=== PATIENT | male | born 1945 | race Caucasian/White ===

== ENCOUNTER 2021-06-19 12:50 | Inpatient (IN) ==
[2021-06-19] MEDS ORDERED: 0.9 % Sodium Chloride 1,000 ML IVC ONE ×2 (14:47→17:48)
[2021-06-19] MEDS ORDERED: Ketorolac 30 MG/ML VIAL IVP ONE (14:48)
[2021-06-19 15:07] LABS: Bacteria,Urine Few per hpf (None-Few); Bilirubin,Urine Small (Negative); Blood,Urine Small (Negative); Clarity,Urine Turbid (Clear); Color,Urine Yellow (Yellow); Glucose,Urine (UA) Normal (Normal); Ketones,Urine Negative (Negative); Leukocyte Esterase,Urine Small (Negative); Mucus,Urine Few per lpf (None-Few); Nitrite,Urine Negative (Negative); Protein,Urine 100 mg/dL (Neg-Trace); RBC,Urine 0-3 per hpf (0-3); Specific Gravity,Urine 1.026 (1.010-1.025); Squamous Epithelial Cell,Urine Few per hpf (None-Few); Urobilinogen,Urine >=8.0 mg/dL (Normal); WBC,Urine 15-30 per hpf (0-3)
[2021-06-19 15:30] LABS: Basophils # 0.1 K/mcL (0.0-0.2); Basophils % 0.3 %; Eosinophils # 0.3 K/mcL (0.0-0.6); Eosinophils % 1.3 %; Hematocrit 44.4 % (37.5-50.1); Hemoglobin 15.2 g/dL (12.9-16.9); Immature Granulocytes % 1.1 % (0-4); Lymphocytes # 0.7 K/mcL (0.6-4.6); Lymphocytes % 3.3 %; Mean Corpuscular HGB Conc 34.2 g/dL (31.6-35.5); Mean Corpuscular Hemoglobin 30.6 pg (28.0-33.3); Mean Corpuscular Volume 89.3 fL (83.0-100.0); Mean Platelet Volume 10.8 fL (9.4-12.4); Monocytes # 1.2 K/mcL (0.0-1.3); Monocytes % 5.9 %; Neutrophils # 17.5 K/mcL (1.6-8.9); Platelet Count 109 K/mcL (140-400); Red Blood Count 4.97 M/mcL (4.19-5.50); Red Cell Distribution Width 13.2 % (11.5-14.5); Segmented Neutrophils % 88.1 %; White Blood Count 19.8 K/mcL (4.3-11.1)
[2021-06-19 15:37] LABS: INR 1.1; Prothrombin Time 12.8 Seconds (9.4-12.1)
[2021-06-19] MEDS ORDERED: levoFLOXacin 750 MG/150 ML 750 MG/150 ML BAG IVPB ONE (16:04)
[2021-06-19 17:03] LABS: Adenovirus Not Detected (Not Detect); Bordetella Pertussis Not Detected (Not Detect); Chlamydophila pneumoniae Not Detected (Not Detect); Coronavirus 229E Not Detected (Not Detect); Coronavirus HKU1 Not Detected (Not Detect); Coronavirus NL63 Not Detected (Not Detect); Coronavirus OC43 Not Detected (Not Detect); Human Metapneumovirus Not Detected (Not Detect); Human Rhinovirus/Enterovirus Not Detected (Not Detect); Influenza A Subtype 2009 H1 Not Detected (Not Detect); Influenza B Not Detected (Not Detect); Mycoplasma pneumoniae Not Detected (Not Detect); Parainfluenza Virus 1 Not Detected (Not Detect); Parainfluenza Virus 2 Not Detected (Not Detect); Parainfluenza Virus 3 Not Detected (Not Detect); Parainfluenza Virus 4 Not Detected (Not Detect); Respiratory Syncytial Virus Not Detected (Not Detect); SARS-CoV-2 Not Detected (Not Detect)
[2021-06-19] MEDS ORDERED: Acetaminophen 325 MG TABLET PO PRN (17:37)
[2021-06-19] MEDS ORDERED: Ondansetron 4 MG/2 ML VIAL IVP PRN (17:37)
[2021-06-19] MEDS ORDERED: Naloxone 0.4 MG/ML INJ IVP PRN (17:37)
[2021-06-19 17:47] LABS: Alanine Aminotransferase 30 Units/L (7-52); Albumin 3.2 g/dL (3.5-5.7); Albumin/Globulin Ratio 1.1 (1.1-2.2); Alkaline Phosphatase 92 Units/L (34-104); Aspartate Amino Transferase 27 Units/L (13-39); Bilirubin,Direct 0.3 mg/dL (0.0-0.2); Bilirubin,Indirect 0.7 mg/dL (0.0-1.0); Blood Urea Nitrogen 34 mg/dL (8-23); Calcium 9.8 mg/dL (8.6-10.3); Carbon Dioxide 24 mEq/L (23-29); Chloride 95 mEq/L (98-107); Globulin 2.9 g/dL (2.4-3.5); Glucose 142 mg/dL (70-105); Osmolality,Calculated 270 (280-300); Potassium 4.8 mEq/L (3.5-5.1); Sodium 125 mEq/L (136-145); Total Protein 6.1 g/dL (6.4-8.9)
[2021-06-19] MEDS ORDERED: traZODone 50 MG TABLET PO PRN (17:53)
[2021-06-19 18:20] LABS: BUN/Creatinine Ratio 18 (6-26); C-Reactive Protein 166 mg/L (Less than 10); eGFR For African Americans 43 (> 60); eGFR For Non-African Americans 36 (> 60)
[2021-06-19 18:46] LABS: Troponin I < 0.03 ng/mL (< 0.04)
[2021-06-19 18:51] LABS: Procalcitonin 1.22 ng/mL (0.00-0.15)
[2021-06-19 19:17] LABS: Lyme Disease Total Antibody Negative (Negative)
[2021-06-19] MEDS: Doxycycline 100 MG in 0.9 % Sodium Chloride Mini Bag 100 ML IVPB SCH (20:03)
[2021-06-19] MEDS: Ciprofloxacin HCL Soln 5 ML BOTTLE LEFT EYE SCH (20:04)
[2021-06-19] MEDS: PrednisoLONE Acetate 1% Opth 5 ML BOTTLE LEFT EYE SCH (20:06)
[2021-06-19] MEDS: Ketorolac OPTH Soln 5 ML BOTTLE LEFT EYE SCH (20:07)
[2021-06-19] MEDS: *HR* HYDROcodone/Acet 5/325 mg TABLET PO PRN (20:26)
[2021-06-19] MEDS: Nicotine 21 MG PATCH.TD24 TD SCH (20:27)
[2021-06-20] MEDS: *HR* HYDROcodone/Acet 5/325 mg TABLET PO PRN (05:17)
[2021-06-20] MEDS: Doxycycline 100 MG in 0.9 % Sodium Chloride Mini Bag 100 ML IVPB SCH ×2 (05:17→17:52)
[2021-06-20 07:14] LABS: Basophils % 0.2 %; Eosinophils # 0.5 K/mcL (0.0-0.6); Eosinophils % 3.2 %; Hematocrit 41.8 % (37.5-50.1); Hemoglobin 14.1 g/dL (12.9-16.9); Immature Granulocytes % 1.6 % (0-4); Immature Platelets 6.2 % (1.1-6.1); Lymphocytes # 0.8 K/mcL (0.6-4.6); Lymphocytes % 5.8 %; Mean Corpuscular HGB Conc 33.7 g/dL (31.6-35.5); Mean Corpuscular Hemoglobin 30.5 pg (28.0-33.3); Mean Corpuscular Volume 90.3 fL (83.0-100.0); Mean Platelet Volume 11.5 fL (9.4-12.4); Monocytes # 1.1 K/mcL (0.0-1.3); Monocytes % 7.9 %; Neutrophils # 11.6 K/mcL (1.6-8.9); Red Blood Count 4.63 M/mcL (4.19-5.50); Red Cell Distribution Width 13.2 % (11.5-14.5); Segmented Neutrophils % 81.3 %; White Blood Count 14.3 K/mcL (4.3-11.1)
[2021-06-20 07:15] LABS: Platelet Count 85 K/mcL (140-400)
[2021-06-20 07:32] LABS: Magnesium 1.6 mg/dL (1.6-2.6); Phosphorous 1.9 mg/dL (2.7-4.5); Potassium 4.9 mEq/L (3.5-5.1)
[2021-06-20] MEDS: DilTIAZem CD (24hr) 240 MG CAP.ER.24H PO SCH (08:01)
[2021-06-20] MEDS: lisinopriL 10 MG TABLET PO SCH (08:01)
[2021-06-20] MEDS: Nicotine 21 MG PATCH.TD24 TD SCH (08:02)
[2021-06-20] MEDS: cefTRIAXone 2,000 MG in Water for inj. (sterile) 20 ML IVP SCH (08:02)
[2021-06-20] MEDS: PrednisoLONE Acetate 1% Opth 5 ML BOTTLE LEFT EYE SCH ×3 (08:03→13:29)
[2021-06-20] MEDS: Ciprofloxacin HCL Soln 5 ML BOTTLE LEFT EYE SCH ×4 (08:03→20:04)
[2021-06-20] MEDS: Ketorolac OPTH Soln 5 ML BOTTLE LEFT EYE SCH ×4 (08:04→20:03)
[2021-06-20] MEDS: predniSONE 5 MG TABLET PO SCH (08:08)
[2021-06-20 08:48] LABS: Calcium 9.5 mg/dL (8.6-10.3)
[2021-06-20] MEDS: 0.9 % Sodium Chloride 1,000 ML IVC SCH ×2 (11:09→20:04)
[2021-06-21] MEDS: Doxycycline 100 MG in 0.9 % Sodium Chloride Mini Bag 100 ML IVPB SCH ×3 (05:38→18:57)
[2021-06-21 06:26] LABS: Basophils # 0.1 K/mcL (0.0-0.2); Basophils % 0.4 %; Eosinophils # 0.4 K/mcL (0.0-0.6); Eosinophils % 3.4 %; Hemoglobin 14.2 g/dL (12.9-16.9); Immature Granulocytes % 1.4 % (0-4); Lymphocytes # 1.3 K/mcL (0.6-4.6); Lymphocytes % 10.1 %; Mean Corpuscular HGB Conc 35.5 g/dL (31.6-35.5); Mean Corpuscular Hemoglobin 31.3 pg (28.0-33.3); Mean Corpuscular Volume 88.1 fL (83.0-100.0); Mean Platelet Volume 10.4 fL (9.4-12.4); Monocytes # 1.3 K/mcL (0.0-1.3); Monocytes % 9.9 %; Platelet Count 121 K/mcL (140-400); Red Blood Count 4.54 M/mcL (4.19-5.50); Red Cell Distribution Width 12.5 % (11.5-14.5); Segmented Neutrophils % 74.8 %; White Blood Count 12.9 K/mcL (4.3-11.1)
[2021-06-21 06:33] LABS: Neutrophils # 9.7 K/mcL (1.6-8.9)
[2021-06-21 06:52] LABS: Platelet Estimate Slight Decrease (Normal); Reactive Lymphocytes Present (Not Present)
[2021-06-21 07:15] LABS: BUN/Creatinine Ratio 25 (6-26); Blood Urea Nitrogen 26 mg/dL (8-23); Carbon Dioxide 21 mEq/L (23-29); Chloride 99 mEq/L (98-107); Glucose 119 mg/dL (70-105); Osmolality,Calculated 270 (280-300); Potassium 4.3 mEq/L (3.5-5.1); Sodium 127 mEq/L (136-145); eGFR For African Americans > 60 (> 60); eGFR For Non-African Americans > 60 (> 60)
[2021-06-21] MEDS: Nicotine 21 MG PATCH.TD24 TD SCH (09:01)
[2021-06-21] MEDS: lisinopriL 10 MG TABLET PO SCH (09:02)
[2021-06-21] MEDS: cefTRIAXone 2,000 MG in Water for inj. (sterile) 20 ML IVP SCH (09:02)
[2021-06-21] MEDS: predniSONE 5 MG TABLET PO SCH (09:02)
[2021-06-21] MEDS: DilTIAZem CD (24hr) 240 MG CAP.ER.24H PO SCH (09:02)
[2021-06-21] MEDS: Ketorolac OPTH Soln 5 ML BOTTLE LEFT EYE SCH ×4 (09:03→20:18)
[2021-06-21] MEDS: Ciprofloxacin HCL Soln 5 ML BOTTLE LEFT EYE SCH ×4 (09:03→20:18)
[2021-06-21 10:49] LABS: Calcium 9.5 mg/dL (8.6-10.3)
[2021-06-21] MEDS ORDERED: Doxycycline 100 MG CAPSULE PO ONE (18:58)
[2021-06-21] MEDS: traZODone 50 MG TABLET PO PRN (20:11)
[2021-06-22 05:52] LABS: Basophils # 0.1 K/mcL (0.0-0.2); Basophils % 0.9 %; Eosinophils # 0.5 K/mcL (0.0-0.6); Hematocrit 41.4 % (37.5-50.1); Hemoglobin 14.1 g/dL (12.9-16.9); Immature Granulocytes % 2.7 % (0-4); Lymphocytes # 1.8 K/mcL (0.6-4.6); Lymphocytes % 16.6 %; Mean Corpuscular HGB Conc 34.1 g/dL (31.6-35.5); Mean Corpuscular Hemoglobin 30.1 pg (28.0-33.3); Mean Corpuscular Volume 88.5 fL (83.0-100.0); Mean Platelet Volume 10.1 fL (9.4-12.4); Monocytes # 1.3 K/mcL (0.0-1.3); Neutrophils # 6.7 K/mcL (1.6-8.9); Platelet Count 153 K/mcL (140-400); Red Blood Count 4.68 M/mcL (4.19-5.50); Red Cell Distribution Width 12.8 % (11.5-14.5); Segmented Neutrophils % 62.8 %; White Blood Count 10.7 K/mcL (4.3-11.1)
[2021-06-22 06:11] LABS: BUN/Creatinine Ratio 31 (6-26); Blood Urea Nitrogen 27 mg/dL (8-23); C-Reactive Protein 61 mg/L (Less than 10); Calcium 10.6 mg/dL (8.6-10.3); Carbon Dioxide 21 mEq/L (23-29); Chloride 101 mEq/L (98-107); Glucose 138 mg/dL (70-105); Osmolality,Calculated 275 (280-300); Potassium 4.4 mEq/L (3.5-5.1); Sodium 129 mEq/L (136-145); eGFR For African Americans > 60 (> 60); eGFR For Non-African Americans > 60 (> 60)
[2021-06-22 06:13] LABS: Platelet Estimate Normal (Normal); Reactive Lymphocytes Present (Not Present)
[2021-06-22] MEDS: Doxycycline 100 MG in 0.9 % Sodium Chloride Mini Bag 100 ML IVPB SCH (06:38)
[2021-06-22] MEDS: cefTRIAXone 2,000 MG in Water for inj. (sterile) 20 ML IVP SCH (08:34)
[2021-06-22] MEDS: Nicotine 21 MG PATCH.TD24 TD SCH (08:35)
[2021-06-22] MEDS: predniSONE 5 MG TABLET PO SCH (08:36)
[2021-06-22] MEDS: lisinopriL 10 MG TABLET PO SCH (08:36)
[2021-06-22] MEDS: Ciprofloxacin HCL Soln 5 ML BOTTLE LEFT EYE SCH ×4 (08:36→20:03)
[2021-06-22] MEDS: DilTIAZem CD (24hr) 240 MG CAP.ER.24H PO SCH (08:36)
[2021-06-22] MEDS: Ketorolac OPTH Soln 5 ML BOTTLE LEFT EYE SCH (08:36)
[2021-06-22] MEDS ORDERED: predniSONE 10 MG TABLET PO ONE (10:45)
[2021-06-22 13:40] LABS: Creatine Kinase 46 Units/L (30-223)
[2021-06-22] MEDS: PrednisoLONE Acetate 1% Opth 5 ML BOTTLE LEFT EYE SCH ×3 (13:51→20:03)
[2021-06-22] MEDS: traZODone 50 MG TABLET PO PRN (20:00)
[2021-06-22] MEDS: Doxycycline 100 MG CAPSULE PO SCH (20:00)
[2021-06-23] MEDS ORDERED: predniSONE 20 MG TABLET PO SCH (09:00)
[2021-06-23] MEDS: lisinopriL 10 MG TABLET PO SCH (10:12)
[2021-06-23] MEDS: DilTIAZem CD (24hr) 240 MG CAP.ER.24H PO SCH (10:12)
[2021-06-23] MEDS: Doxycycline 100 MG CAPSULE PO SCH (10:12)
[2021-06-23] MEDS: cefTRIAXone 2,000 MG in Water for inj. (sterile) 20 ML IVP SCH (10:12)
[2021-06-23] MEDS: Nicotine 21 MG PATCH.TD24 TD SCH (10:13)
[2021-06-23] MEDS: PrednisoLONE Acetate 1% Opth 5 ML BOTTLE LEFT EYE SCH ×3 (10:17→17:02)
[2021-06-23] MEDS: Ciprofloxacin HCL Soln 5 ML BOTTLE LEFT EYE SCH ×3 (10:17→17:57)
[2021-06-23 11:13] LABS: Anaplasma phagocytophilum IgG <1:80 (<1:80); Anaplasma phagocytophilum IgM < 1:16 (< 1:16)
[2021-06-23 14:27] VITALS: BP 112/67; PULSE 77; TEMP 97.5; O2SAT 92
[2021-06-23 15:57] LABS: BUN/Creatinine Ratio 33 (6-26); Blood Urea Nitrogen 39 mg/dL (8-23); Calcium 10.9 mg/dL (8.6-10.3); Carbon Dioxide 24 mEq/L (23-29); Chloride 102 mEq/L (98-107); Glucose 161 mg/dL (70-105); Osmolality,Calculated 285 (280-300); Potassium 4.7 mEq/L (3.5-5.1); Sodium 131 mEq/L (136-145); eGFR For African Americans > 60 (> 60); eGFR For Non-African Americans > 60 (> 60)
[2021-06-24] MEDS ORDERED: PrednisoLONE Acetate 1% Opth 5 ML BOTTLE LEFT EYE SCH (09:00)
[2021-06-26] MEDS ORDERED: predniSONE 5 MG TABLET PO SCH (09:00)
== END 2021-06-23 18:42 | disposition home health service (06) | DRG 871 ==
LOC: EMEROOARM 12:50 → 3ANU 12:50 → SUATTDRO 17:33 → 3ANU 18:56 → SUATTDRO 06-21 17:29
PROVIDERS: ADMIT Family Medicine; ATTEND Hospitalist